=== PATIENT | female | born 1960 | race Caucasian/White ===

== ENCOUNTER 2016-11-23 20:20 | Emergency (ER) | payer MEDICAID ==
[2016-11-23] MEDS ORDERED: DIPH,PERTUSS(ACELL),TET VAC/PF 0.5 ML VIAL IM ONE (20:58)
[2016-11-23] MEDS ORDERED: IBUPROFEN 600 MG TABLET PO ONE (21:12)
--- NOTE | 2016-11-23 21:35 | ER NURSING DOCUMENTATION ---
Nurse's Notes [facility] Name:Sita Sigala Age:56 yrs Sex:Female :1960 Arrival Date:11/23/2016 Time:20:20 Bed1 Private MD: Diagnosis:Facial Laceration;Abrasion Presentation: 11/23 20:27 Presenting complaint: Patient states: carrying printer and tripped while carrying cb printer. Transition of care: Other office. Complicating Factors: There are no complicating factors for this patient. 20:27 Method Of Arrival: Private Vehicle cb 20:27 Acuity: [place] 3 cb Triage Assessment: 20:32 General: Appears in no apparent distress, well groomed, Behavior is cooperative. Pain: cb Complains of pain in right supraorbital ridge, gums, palmar aspect of right forearm and right knee Pain currently is 4 out of 10 on a pain scale. EENT: Reports teeth lining up okay. Neuro: Level of Consciousness is awake, alert, Oriented to person, place, time, event. Cardiovascular: Pulses are 2+ in left radial artery. Respiratory: Airway is patent Trachea midline Respiratory effort is even, unlabored, Respiratory pattern is regular, symmetrical. GI: Denies nausea. : No deficits noted. Derm: abrasion of R knee and R foream. Musculoskeletal: No deficits noted. Injury Description: Laceration sustained to right supraorbital ridge is clean, was sustained less than 30 minutes ago. is bleeding no active bleeding noted. Historical: - Allergies: No known drug Allergies; - Home Meds: 1. Wellbutrin Oral 2. Zoloft Oral 3. Abilify oral - PMHx: DEPRESSION; - PSHx: HERNIA REPAIR; heel spur; Cholecysectomy; - Tetanus: < 10 years. - Ebola Screening: : Patient negative for fever greater than or equal to 101.5 degrees Fahrenheit, and additional compatible Ebola Virus Disease symptoms. Patient denies exposure to infectious person. Patient denies travel to an Ebola-affected area in the 21 days before illness onset. No symptoms or risks identified at this time. . - Immunization history: Flu Vaccine < 1 year. - Social history: Smoking status: Patient states was never smoker of tobacco. Screenin:37 Infectious Disease Risk None. Abuse screen: Denies threats or abuse. Denies injuries cb from another. Nutritional screening: No deficits noted. Vital Signs: 20:26 BP 146 / 95; Pulse 86; Resp 16; Temp 98.4; Pulse Ox 94% ; Weight 86.18 kg; Height 5 ft. jt 10 in. (177.80 cm); Pain 4/10; 21:33 BP 132 / 61; Pulse 79; Resp 12; Pulse Ox 92% on R/A; Pain 2/10; mk2 20:26 Body Mass Index 27.26 (86.18 kg, 177.80 cm) jt ED Course: 20:22 Patient arrived in ED. em3 20:26 Chevy Gunn MD is Attending Physician. sc 20:26 Yony White, RN is Primary Nurse. cb 20:29 Triage completed. cb 20:37 Valuables Remains with patient Patient has correct armband on for positive cb identification. Bed in low position. Call light in reach. Pulse Ox - RN Monitoring Only NIBP On - RN Monitoring Only. 21:08 Laceration over R eye irrigated with NSS. Wound care to abrasion, located on right arm cb and palmar aspect of right forearm and right supraorbital ridge was cleaned with Hibiclens, Irrigation Normal Saline Patient tolerated well. 21:31 Primary Nurse role handed off by Yony White, MASON mk2 21:31 Yoli Martin, MASON is Primary Nurse. mk2 21:32 Dressings: Steri strips 1/4 " X 3;. mk2 Administered Medications: 20:55 Drug: Adacel 0.5 ml; {Stone Splitter: [employer] Pasteur ([employer]). Exp: 07/30/2018. Lot #: [id number]. } {Note: by yony CUEVAS.} Route: IM; Site: left deltoid; 20:59 Follow up: Response: No adverse reaction mk2 21:06 Follow up: Response: No adverse reaction cb 21:06 Drug: Motrin 600 mg; Route: PO; cb 21:06 Follow up: Response: No adverse reaction cb Outcome: 21:22 Discharge ordered by . sc 21:33 Discharged to home ambulatory. mk2 21:33 Condition: improved 21:33 Discharge instructions given to patient, Instructed on discharge instructions, follow up and referral plans. medication usage. 21:34 Patient left the ED. mk2 11/24 17:10 Discharge F/U Call: Unable to reach: no answer sj Signatures: Yony White, MASON RN Chevy Rene MD MD sc Kruger, Meg, RN RN 2 Diony Crum Joanne jt Janzen, Sarah sj
--- NOTE | 2016-11-23 21:39 | ER PHYSICIAN DOCUMENTATION ---
Physician Documentation [facility] Name:Sita Sigala Age:56 yrs Sex:Female :1960 Arrival Date:11/23/2016 Time:20:20 Bed1 Private MD: Chevy Winn Disposition: 11/23/16 21:22 Discharged to Home/Self Care. Impression: Facial Laceration, Abrasion. - Condition is Good. - Discharge Instructions: ABRASION, LACERATION, Face (suture or tape). - Medical Reconciliation form form. - Follow up: Private Physician; When: As needed; Reason: Worsening of condition. - Problem is new. - Symptoms have improved. HPI: 11/23 21:19 This 56 yrs old Female presents to ER via Private Vehicle with complaints of sc Laceration To Scalp/Face. 21:19 The patient has a laceration related to: falling from a standing position, occurred at ct home. The laceration(s) is(are) located on the right leg and right arm and face. Onset: The symptom(s)/episode began/occurred just prior to arrival. Associated signs and symptoms: The patient has no apparent associated signs or symptoms. Historical: - Allergies: No known drug Allergies; - Home Meds: 1. Wellbutrin Oral 2. Zoloft Oral 3. Abilify oral - PMHx: DEPRESSION; - PSHx: HERNIA REPAIR; heel spur; Cholecysectomy; - Tetanus: < 10 years. - Ebola Screening: : Patient negative for fever greater than or equal to 101.5 degrees Fahrenheit, and additional compatible Ebola Virus Disease symptoms. Patient denies exposure to infectious person. Patient denies travel to an Ebola-affected area in the 21 days before illness onset. No symptoms or risks identified at this time. . - Immunization history: Flu Vaccine < 1 year. - Social history: Smoking status: Patient states was never smoker of tobacco. ROS: 21:20 Constitutional: Negative for fever, chills, and weight loss. sc Eyes: Negative for injury, pain, redness, and discharge. ENT: Negative for injury, pain, and discharge. Neck: Negative for injury, pain, and swelling. Cardiovascular: Negative for chest pain, palpitations, and edema. Respiratory: Negative for shortness of breath, cough, wheezing, and pleuritic chest pain. Abdomen/GI: Negative for abdominal pain, nausea, vomiting, diarrhea, and constipation. Back: Negative for injury and pain. 21:20 Neuro: Negative for headache, weakness, numbness, tingling, and seizure. sc 21:20 Skin: Positive for abrasion(s), laceration(s). Exam: Constitutional: This is a well developed, well nourished patient who is awake, alert, and in no acute distress. ENT: Nares patent. No nasal discharge, no septal abnormalities noted. Tympanic membranes are normal and external auditory canals are clear. Oropharynx with no redness, swelling, or masses, exudates, or evidence of obstruction, uvula midline. Mucous membranes moist. Neck: Trachea midline, no thyromegaly or masses palpated, and no cervical lymphadenopathy. Supple, full range of motion without nuchal rigidity, or vertebral point tenderness. No meningismus. Chest/axilla: Normal chest wall appearance and motion. Nontender with no deformity. No lesions are appreciated. Cardiovascular: Regular rate and rhythm with a normal S1 and S2. No gallops, murmurs, or rubs. Normal PMI, no JVD. No pulse deficits. Respiratory: Lungs have equal breath sounds bilaterally, clear to auscultation and percussion. No rales, rhonchi or wheezes noted. No increased work of breathing, no retractions or nasal flaring. 21:20 Back: No spinal tenderness. No costovertebral tenderness. Full range of motion. sc 21:20 Head/face: Noted is abrasion(s), a laceration(s), that is superficial, 0.5 cm(s), of the right supraorbital ridge and mouth. 21:20 Musculoskeletal/extremity: Extremities: grossly normal except: noted in the right arm and right knee: abrasion, ROM: no acute changes, Circulation is intact in all extremities. Sensation intact. 21:23 Skin: injury. ct Vital Signs: 20:26 BP 146 / 95; Pulse 86; Resp 16; Temp 98.4; Pulse Ox 94% ; Weight 86.18 kg; Height 5 ft. jt 10 in. (177.80 cm); Pain 4/10; 21:33 BP 132 / 61; Pulse 79; Resp 12; Pulse Ox 92% on R/A; Pain 2/10; mk2 20:26 Body Mass Index 27.26 (86.18 kg, 177.80 cm) jt MDM: 20:26 Patient medically screened. sc 21:21 Differential diagnosis: superficial laceration. Data reviewed: vital signs, nurses sc notes, and as a result, I will discharge patient. Counseling: I had a detailed discussion with the patient and/or guardian regarding: the historical points, exam findings, and any diagnostic results supporting the discharge/admit diagnosis, the need for outpatient follow up, to return to the emergency department if symptoms worsen or persist or if there are any questions or concerns that arise at home. 11/23 20:56 Order name: Wound Care; Complete Time: 20:57 cb Dispensed Medications: 20:55 Drug: Adacel 0.5 ml; {Cash Processing Specialist: [employer] P[employer] ([employer]). Exp: 07/30/2018. Lot #: [id number]. } {Note: by yony CUEVAS.} Route: IM; Site: left deltoid; 20:59 Follow up: Response: No adverse reaction [facility] 21:06 Follow up: Response: No adverse reaction cb 21:06 Drug: Motrin 600 mg; Route: PO; cb 21:06 Follow up: Response: No adverse reaction cb Signatures: Yony White RN RN cb Chew, Scott, MD MD sc Kruger, Meg, RN RN 2
== END 2016-11-23 21:34 | disposition home or self-care (01) ==
LOC: ER 20:20
DX: S00.211A Abrasion of right eyelid and periocular area, initial encounter (principal); S00.512A Abrasion of oral cavity, initial encounter; S50.811A Abrasion of right forearm, initial encounter; S80.211A Abrasion, right knee, initial encounter; W01.0XXA Fall on same level from slipping, tripping and stumbling without subsequent striking against object, initial encounter; Y92.019 Unspecified place in single-family (private) house as the place of occurrence of the external cause; Y93.01 Activity, walking, marching and hiking; Z79.899 Other long term (current) drug therapy; Z23 Encounter for immunization
CPT/HCPCS: 90471; 99283